=== PATIENT | female | born 1990 | race Caucasian/White ===

== ENCOUNTER 2019-11-03 18:06 | Emergency (ER) | payer MEDICAID ==
[~2019-11-03] VITALS: Ht 172.7 cm; Wt 81.4 kg
[2019-11-03] MEDS ORDERED: LIDOcaine Viscous 15ml cup MM STA (20:44)
[2019-11-03] MEDS ORDERED: LIDO20SO16 PO (20:54)
[2019-11-03] MEDS ORDERED: CHLO473M3 PO (21:02)
[2019-11-03 21:08] VITALS: BP 114/48
== END 2019-11-03 21:11 | disposition home or self-care (01) ==
LOC: ER 18:07
DX: K08.89 Other specified disorders of teeth and supporting structures (principal); Z88.2 Allergy status to sulfonamides; Z79.899 Other long term (current) drug therapy
CPT/HCPCS: 99283